=== PATIENT | female | born 1995 | race African-American/Black ===

== ENCOUNTER → 2017-07-10 | Outpatient (CLI) | payer OTHER ==
--- NOTE | 2017-07-10 18:22 | DIAGNOSTIC IMAGING REPORT ---
VENOUS DOPPLER UPR EXT UNIL HISTORY: 21 years-old Female RT ARM PAIN/SWELLING, R/O DVT acute right arm pain and swelling COMPARISON: None available TECHNIQUE: Multiple real-time sonographic images of the right upper extremity deep venous structures were obtained assessing grayscale appearance, color and spectral flow. FINDINGS: There is normal compressibility, flow, and phasicity within the right upper extremity deep venous structures. IMPRESSION: No sonographic evidence of deep venous thrombosis. The above report was generated using voice recognition software. It may contain grammatical, syntax or spelling errors. Electronically signed by: Justino Ramirez M.D. 07/10/2017 6:20 PM Dictated Date/Time: 07/10/2017 6:19 PM
== END | disposition home or self-care (01) ==
LOC: C.ULTR 17:35
PROVIDERS: ATTEND Physician Assistant
DX: M79.601 Pain in right arm (principal)